=== PATIENT | male | born 1950 | race Caucasian/White ===

== ENCOUNTER 2017-06-02 20:13 | Emergency (ER) | payer OTHER, MEDICAID ==
[2017-06-03] MEDS: SOD CHLORIDE 0.9% 500 ML IV (02:37)
[2017-06-03] MEDS: ONDANSETRON 4 MG INJ IV (02:38)
[2017-06-03] MEDS: KETOROLAC 15 MG INJ IV (02:38)
[2017-06-03] MEDS: LIDOCAINE/MYLANTA 40 ML BTL PO (02:38)
[2017-06-03] MEDS: BELLADONNA/PHENOBARBITAL TAB PO (02:39)
[2017-06-03 02:50] LABS: ADD MAN DIFF? NO
[2017-06-03 02:52] LABS: WHITE BLOOD COUNT 11.7 10^3/ul (4.8-10.8)
[2017-06-03 02:52] LABS: BASOPHIL # 0.1 10^3/ul (0.0-0.1); BASOPHILS % 0.7 % (0.0-2.0); EOSINOPHILS # 0.2 10^3/ul (0.0-0.5); EOSINOPHILS % 1.4 % (0.0-7.0); HEMATOCRIT 43.1 % (42.0-52.0); HEMOGLOBIN 14.5 g/dl (14.0-18.0); LYMPHOCYTES # 2.9 10^3/ul (0.8-2.9); MEAN CORPUSCULAR HEMOGLOBIN 29.2 pg (29.0-33.0); MEAN CORPUSCULAR HGB CONC 33.6 g/dl (32.0-37.0); MEAN CORPUSCULAR VOLUME 86.7 fl (82.0-101.0); MEAN PLATELET VOLUME 10.7 fl (7.4-10.4); MONOCYTE # 0.8 10^3/ul (0.3-0.9); MONOCYTES % 6.7 % (0.0-11.0); NEUTROPHIL # 7.7 10^3/ul (1.6-7.5); NEUTROPHILS % 65.8 % (39.0-77.0); PLATELET COUNT 239 10^3/UL (140-415); RED BLOOD COUNT 4.97 10^6/ul (4.70-6.10); RED CELL DISTRIBUTION WIDTH 12.6 % (11.5-14.5)
[2017-06-03 03:12] LABS: ALANINE AMINOTRANSFERASE 82 IU/L (13-69); ALBUMIN 4.6 g/dl (3.3-4.9); ALBUMIN/GLOBULIN RATIO 1.24; ALKALINE PHOSPHATASE 60 IU/L (42-121); ANION GAP 17 (8-16); ASPARTATE AMINO TRANSFERASE 45 IU/L (15-46); BILIRUBIN,INDIRECT 0.1 mg/dl (0-1.1); BILIRUBIN,TOTAL 0.1 mg/dl (0.2-1.3); BLOOD UREA NITROGEN 20 mg/dl (7-20); CALCIUM 10.2 mg/dl (8.4-10.2); CARBON DIOXIDE 27 mmol/L (21-31); CHLORIDE 101 mmol/L (97-110); CREATININE 0.68 mg/dl (0.61-1.24); GLUCOSE 242 mg/dl (70-220); LIPASE 229 U/L (23-300); POTASSIUM 4.3 mmol/L (3.5-5.1); SODIUM 141 mmol/L (135-144); TOTAL PROTEIN 8.3 g/dl (6.1-8.1)
[2017-06-03 03:50] LABS: TROPONIN-I < 0.012 ng/ml (0.00-0.12)
[2017-06-03] MEDS ORDERED: ALBUTEROL HFA 8 GM INHALER INH (05:00)
== END 2017-06-03 04:35 | disposition home or self-care (01) ==
LOC: E/R 20:13
DX: R10.11 Right upper quadrant pain (principal); I10 Essential (primary) hypertension; E11.9 Type 2 diabetes mellitus without complications; Z79.4 Long term (current) use of insulin; Z79.82 Long term (current) use of aspirin
CPT/HCPCS: 36415; 76705; 80053; 83690; 84484; 85025; 93005; 96374; 96375; 99285-25